=== PATIENT | female | born 1990 | race Caucasian/White ===

== ENCOUNTER 2017-07-03 14:26 | Emergency (ER) | payer OTHER ==
[~2017-07-03] VITALS: Ht 162.6 cm; Wt 59.1 kg
[2017-07-03 14:39] VITALS: BP 107/72; PULSE 57; RESP 16; O2SAT 98
--- NOTE | 2017-07-03 14:58 | ED.REPORT ---
HPI-Eye Problem Date of Service Jul 03, 2017 ED Provider: History of Present Illness: agueda has been there for 4 days swelling started last night. used a hot pack. primary care is mukesh at [facility] in [place]. up to date on tdap. tried to squeeze it yesterday am nothing came out. 02/17 pain by left side of nose under left eye Nursing Notes Stated Complaint: BOIL WELLING BY EYE Chief Complaint: Eye Nursing Notes Reviewed: Yes Allergies: Coded Allergies: doxycycline (Verified Allergy, Unknown, Nausea,Vomiting, 07/03/17) Scheduled Sertraline HCl (Zoloft) 25 Mg Tablet Unknown Dose PO DAILY Scheduled PRN Clonazepam (Clonazepam) 1 Mg Tablet Unknown Dose PO BID PRN PRN For Anxiety General Time Seen by MD: 14:57 Chief Complaint Left eye affected, Other (papule) Hx Obtained From: Patient Sudden in Onset?: No Severity: Current: Mild Past Medical History Past Medical History Denies: Asthma, Diabetes mellitus Past Surgical History spleen removed Smoking History Current Every Day Smoker (1/2 pack a day for 14 years) Social History Alcohol Use: Denies alcohol use Drug Use: Denies drug use Occupation lives with and children no work or school 07/03/2017 Ambulatory Status Independent Review of Systems Basic Review of Systems Respiratory: No shortness of breath, No cough, No wheeze : No dysuria, No frequency Psychiatric: Normal thought content Physical Exam Initial Vital Signs Vital Signs (First) Date Time Temp Pulse Resp B/P Pulse Ox O2 Delivery O2 Flow Rate FiO2 07/03/17 14:39 36.7 57 16 107/72 98 Room Air Initial VS: Reviewed, Vital signs normal General / Const: Well-developed, Well-nourished Back: No CVA tenderness Psychiatric: Mood/affect normal, Behavior normal, Normal thought content Head / Eyes: Atraumatic, Normocephalic, PERRL General/Constitutional: Awake, Alert, No acute distress, Well appearing, Well developed, Well hydrated small papule on left side of nose, no floutance palpapted. Mild swelling into lower eye and on left check. No sign of cellulitis Respiratory / Chest: Atraumatic, Breath sounds NL, Breath sounds = bilat, No respiratory distress Cardiovascular: Heart rate NL, Regular rhythm, Heart sounds NL, No gallop Abdomen: Atraumatic, Soft, Non-tender Re-Eval/Medical Decision Med Decision/Clinical Course 26 year old female presents to the ER with concern after squeezing a papule yesterday am and then using a hot pack last evening. No sign of cellulitis, site is hard to palpation. No sign of abscess at this time Discharge & Departure Primary Impression: Papule of skin Disposition: Home Additional Instructions: Do not squeeze the pimple! Do not use a hot pack to the site. Get into the shower and let warm water go over the site 3 times a day for 10 to 15 minutes each time. Do not squeeze it! It is rock hard. If this gets bigger, or gets red like a sunburn or feels like pudding, return to the ER. Start bactrim in the am and pm for 7 days. Use bactroban to the site 3 times a day for 7 days. Use ibuprofen 800 mg 3 times a day for 5 days. You can use an ice pack to the eye to help decrease the swelling under the eye and the check. Return with any concerns. Referrals: Earl Chapman MD EDSupervising Provider for APC: Rizwan Adler MD copies to: Earl Chapman MD, Sue ARNP Jul 03, 2017 14:58
[2017-07-03] MEDS ORDERED: SERT25TA2 PO (15:02)
[2017-07-03] MEDS ORDERED: KLO1T PO (15:02)
[2017-07-03 15:33] VITALS: BP 107/72; PULSE 57; RESP 16; O2SAT 98
== END 2017-07-03 15:33 | disposition home or self-care (01) ==
LOC: SED 14:26
DX: R23.8 Other skin changes (principal); F17.200 Nicotine dependence, unspecified, uncomplicated; Z88.1 Allergy status to other antibiotic agents